=== PATIENT | female | born 1935 | race Caucasian/White ===

== ENCOUNTER → 2019-03-02 | Outpatient (CLI) | payer OTHER ==
[2019-03-02 12:17] LABS: Creatinine, Urine Random 42.9 mg/dL (27.00-270.00)
[2019-03-02 12:18] LABS: Microalb/Creat Ratio UR, Rand 173.193 mg/g (0.000-30.000); Microalbumin, Random Urine 74.3 mg/L (0.000-20.000)
[2019-03-05 10:06] LABS: DOPAMINE, URINE 97 ug/L (Undefined)
== END | disposition home or self-care (01) ==
LOC: LAB SHORT 09:40 → LAB 09:40
PROVIDERS: Physician Assistant
DX: I10 Essential (primary) hypertension (principal)
CPT/HCPCS: 81050; 82043; 82570

== ENCOUNTER 2021-03-14 09:18 | Emergency (ER) | payer OTHER ==
[~2021-03-14] VITALS: Ht 157.5 cm; Wt 50.8 kg
[2021-03-14] MEDS ORDERED: IRBESARTAN300 M3 PO (09:40)
[2021-03-14 10:31] LABS: BASOPHILS PERCENT AUTO 0 % (0-2); EOSINOPHILS ABSOLUTE AUTO 0.01 K/mm3 (0.00-0.68); EOSINOPHILS PERCENT AUTO 0 % (0-6); Hematocrit 40.8 % (33.0-51.0); Hemoglobin 13.6 g/dL (11.5-16.0); IMMATURE GRAN PERCENT AUTO 4 % (0-1); LYMPHOCYTES ABSOLUTE AUTO 1.21 K/mm3 (0.84-5.20); LYMPHOCYTES PERCENT AUTO 27 % (21-46); MONOCYTES ABSOLUTE AUTO 0.67 K/mm3 (0.16-1.47); MONOCYTES PERCENT AUTO 15 % (4-13); Mean Corpuscular HGB 31.8 pg (26.0-34.0); Mean Corpuscular HGB Conc 33.3 g/dL (31.5-36.5); Mean Corpuscular Volume 95 fL (80-100); Mean Platelet Volume 10.9 fL (9.1-12.4); NEUTROPHILS ABSOLUTE AUTO 2.44 K/mm3 (1.96-9.15); NEUTROPHILS PERCENT AUTO 54 % (41-73); Platelet Count 194 K/mm3 (150-400); RDW Coefficient Variation 13.9 % (11.7-14.2); Red Blood Cell Count 4.28 M/mm3 (3.80-5.20); White Blood Cell Count 4.53 K/mm3 (4.00-11.30)
[2021-03-14 10:48] LABS: Albumin, Blood 4.4 g/dL (3.4-5.0); Albumin/Globulin Ratio 1.1 (0.8-1.8); Bilirubin, Total 0.5 mg/dL (0.1-1.0); Bun/Creatinine Ratio 11.2 (12.0-20.0); Calcium, Blood 9.2 mg/dL (8.5-10.1); Creatinine, Blood 0.99 mg/dL (0.40-1.00); Potassium, Blood 4.2 mmol/L (3.5-5.5); Total Protein, Blood 8.4 g/dL (6.4-8.2)
[2021-03-14] MEDS ORDERED: Bactrim Ds Tab1 EACH PO (11:07)
[2021-03-14] MEDS ORDERED: CEPH500 PO (11:07)
== END 2021-03-14 11:40 | disposition home or self-care (01) ==
LOC: ER 09:18
PROVIDERS: Physician Assistant
DX: L03.115 Cellulitis of right lower limb (principal); L97.519 Non-pressure chronic ulcer of other part of right foot with unspecified severity; I10 Essential (primary) hypertension; Z79.899 Other long term (current) drug therapy
CPT/HCPCS: 36415; 73620; 80053; 85025; 99284-25

== ENCOUNTER 2021-03-16 15:47 | Inpatient (IN) | payer OTHER ==
[~2021-03-16] VITALS: Ht 154.9 cm; Wt 50.8 kg
[~2021-03-16 15:47] MED LIST: Bactrim Ds Tab1 EACH PO; CEPH500 PO; IRBESARTAN300 M3 PO
[2021-03-16] MEDS ORDERED: ATEN50 PO (17:18)
[2021-03-16] MEDS ORDERED: AMLO5 PO (17:19)
[2021-03-16 17:55] LABS: BASOPHILS PERCENT AUTO 0 % (0-2); EOSINOPHILS ABSOLUTE AUTO 0.03 K/mm3 (0.00-0.68); EOSINOPHILS PERCENT AUTO 0 % (0-6); Hematocrit 34.4 % (33.0-51.0); Hemoglobin 11.8 g/dL (11.5-16.0); IMMATURE GRAN ABSOLUTE AUTO 0.45 K/mm3 (0.00-0.10); IMMATURE GRAN PERCENT AUTO 5 % (0-1); LYMPHOCYTES ABSOLUTE AUTO 0.23 K/mm3 (0.84-5.20); LYMPHOCYTES PERCENT AUTO 3 % (21-46); MONOCYTES ABSOLUTE AUTO 1.23 K/mm3 (0.16-1.47); MONOCYTES PERCENT AUTO 14 % (4-13); Mean Corpuscular HGB 31.7 pg (26.0-34.0); Mean Corpuscular HGB Conc 34.3 g/dL (31.5-36.5); Mean Corpuscular Volume 93 fL (80-100); Mean Platelet Volume 10.9 fL (9.1-12.4); NEUTROPHILS ABSOLUTE AUTO 6.96 K/mm3 (1.96-9.15); NEUTROPHILS PERCENT AUTO 78 % (41-73); Platelet Count 155 K/mm3 (150-400); Red Blood Cell Count 3.72 M/mm3 (3.80-5.20)
[2021-03-16 18:22] LABS: Albumin/Globulin Ratio 1.2 (0.8-1.8); Bilirubin, Total 0.4 mg/dL (0.1-1.0); Bun/Creatinine Ratio 13.9 (12.0-20.0); Calcium, Blood 9.1 mg/dL (8.5-10.1); Creatinine, Blood 1.08 mg/dL (0.40-1.00); Globulin, Blood 3.2 g/dL (2.2-4.0); Potassium, Blood 4.1 mmol/L (3.5-5.5); Total Protein, Blood 7.2 g/dL (6.4-8.2)
[2021-03-16 19:36] LABS: Creatine Kinase MB 10.3 ng/mL (0.0-3.6); Creatine Kinase MB Index 0.7 (0.0-4.0)
[2021-03-16 20:18] LABS: SARS-Cov-2 (COVID-19) PCR, MMC NEGATIVE (NEGATIVE)
--- NOTE | 2021-03-16 22:00 | NUR ---
PT ARRIVED TO ROOM FROM ER. PT ALERT, ORIENTED TO SELF, DOES FOLLOW BASIC DIRECTIONS. PT STATES SHE FELL, REPORTS "I FALL ALL OF THE TIME" BUT WAS UNABLE TO GIVE DETAILS OF FALL OR HOW LONG SHE WAS DOWN FOR. PT REP POSSIBLY HIT HEAD W/FALL, BUT DENIES LOC. PT HAS BRUISE ON RIGHT HIP, AND SMALL BRUISE ON LEFT HIP. RIGHT FOOT RED/SWOLLEN W/SCABS ON TOES AND SCABBED ULCER ON RIGHT HEEL. PT "WE'VE BEEN DEALING W/THAT FOR AGES" PT UNABLE TO GIVE MEDICAL HX, HAS DIFFICULTY FINDING APPROPRIATE WORDS. INITIAL ADMIT AND ADMIT ASSESSMENT UNABLE TO BE COMPLETED AT THIS TIME. PT ORIENTED TO ROOM/CALL LIGHT, BED ALARM ON FOR SAFETY.
[2021-03-17 04:57] LABS: BASOPHILS ABSOLUTE AUTO 0.01 K/mm3 (0.00-0.23); BASOPHILS PERCENT AUTO 0 % (0-2); EOSINOPHILS ABSOLUTE AUTO 0.02 K/mm3 (0.00-0.68); EOSINOPHILS PERCENT AUTO 0 % (0-6); Hematocrit 34.2 % (33.0-51.0); Hemoglobin 11.6 g/dL (11.5-16.0); IMMATURE GRAN ABSOLUTE AUTO 0.11 K/mm3 (0.00-0.10); IMMATURE GRAN PERCENT AUTO 2 % (0-1); LYMPHOCYTES ABSOLUTE AUTO 0.82 K/mm3 (0.84-5.20); LYMPHOCYTES PERCENT AUTO 12 % (21-46); MONOCYTES ABSOLUTE AUTO 1.31 K/mm3 (0.16-1.47); MONOCYTES PERCENT AUTO 19 % (4-13); Mean Corpuscular HGB 31.4 pg (26.0-34.0); Mean Corpuscular HGB Conc 33.9 g/dL (31.5-36.5); Mean Corpuscular Volume 92 fL (80-100); Mean Platelet Volume 11.1 fL (9.1-12.4); NEUTROPHILS ABSOLUTE AUTO 4.53 K/mm3 (1.96-9.15); NEUTROPHILS PERCENT AUTO 67 % (41-73); Platelet Count 159 K/mm3 (150-400); RDW Coefficient Variation 14.1 % (11.7-14.2); RDW Standard Deviation 48.1 fL (35.1-46.3)
[2021-03-17 05:10] LABS: International Normalized Ratio 1.15; Prothrombin Time Results 12.3 Sec (9.7-11.5)
[2021-03-17 05:34] LABS: Albumin, Blood 3.5 g/dL (3.4-5.0); Albumin/Globulin Ratio 1.2 (0.8-1.8); Bilirubin, Total 0.5 mg/dL (0.1-1.0); Calcium, Blood 8.6 mg/dL (8.5-10.1); Creatinine, Blood 1.06 mg/dL (0.40-1.00); Magnesium, Blood 2.1 mg/dL (1.6-2.4); Potassium, Blood 3.9 mmol/L (3.5-5.5); Total Protein, Blood 6.5 g/dL (6.4-8.2)
--- NOTE | 2021-03-17 08:28 | NUR ---
PT NEW ADMIT THIS SHIFT FOR LEFT HIP FX. PT ALERT, PLEASANTLY CONFUSED, UNABLE TO GIVE MEDICAL HISTORY. PT BP ELEVATED, PRN HYDRALAZINE GIVEN PER EMAR. PT DENIED CP/PRESSURE. PAIN MGD PER EMAR AND REPOSITIONING. PT INCONTINENT, ATTENDS CHANGED PRN. HEEL PROTECTORS IN PLACE, RIGHT FOOT WOUND PICS IN CHART. PT NPO POST MIDNIGHT, IVF CONT PER ORDERS. AWAITING ORTHO CONSULT FOR SURGERY PLANS. REPORT GIVEN TO TANO Gupta RN.
[2021-03-17 09:55] LABS: Albumin, Blood 3.7 g/dL (3.4-5.0); Anion Gap 11 mmol/L (6-16); Blood Urea Nitrogen 18 mg/dL (8-24); Bun/Creatinine Ratio 15.9 (12.0-20.0); CO2, Blood 19 mmol/L (21-32); Calcium, Blood 8.8 mg/dL (8.5-10.1); Chloride, Blood 103 mmol/L (98-108); Creatinine, Blood 1.13 mg/dL (0.40-1.00); Glomerular Filtration Rate 49 (60-); Glucose, Blood 74 mg/dL (70-99); Sodium, Blood 133 mmol/L (136-145)
--- NOTE | 2021-03-17 11:32 | NUR ---
STRAIGHT CATH UNSUCCESSFUL AT GETTING A CLEAN CATCH URINE SPECIMEN. PT TOLERATED STRAIGHT CATH. URINE SPECIMEN SENT TO LAB.
[2021-03-17 11:38] LABS: Source, Urine Catheter
[2021-03-17 11:44] LABS: Bilirubin, Urine Neg (Neg); Blood, Urine 1+ (Neg); Glucose Qualitative, Urine Neg (Neg); Ketones, Urine 3+ (Neg); Leukocyte Esterase, Urine Neg (Neg); Nitrite, Urine Neg (Neg); Protein, Urine 2+ (Neg); Specific Gravity, Urine 1.025 (1.003-1.022); Urobilinogen, Urine NORM (Normal)
[2021-03-17 11:54] LABS: Appearance, Urine Clear (Clear); Color, Urine Yellow (P-Yellow)
[2021-03-17 11:56] LABS: Bacteria Rare /hpf; Squamous Epithelial Cells Rare /hpf (Few); White Blood Cells, Urine 0-2 /hpf (0-5)
--- NOTE | 2021-03-17 13:19 | NUR ---
PT TO OR
--- NOTE | 2021-03-17 14:05 | NUR ---
STAT EKG PRE OP, GALINDO GARCIASES X3, PERIDEX SWISH GARGLE SPIT, CHLORHEXADINE WIPES L HIP TO KNEE THEN PT TO OR.
--- NOTE | 2021-03-17 16:42 | NUR ---
PT ARIVED FROM PACU RESTLESS AND CONFUSED. PULLING AT POLAR PACK AND LINENS. DENIES PAIN. MEDICATED PER ORDERS FOR NAUSEA. DAUGHTER AT BEDSIDE, VITAL SIGNS STABLE.
--- NOTE | 2021-03-17 17:53 | NUR ---
SHIFT SUMMARY POD0 HEMIHIP ARTHROPLASTY ANTERIOR. PRIOR TO SURGERY PT STRAIGHT CATH FOR UA SPECIMEN. UPON RETURN FROM PACU PT CONFUSED, RESTLESS AND APPEARS AGITATED. PT REPORTED NOT FEELING WELL POST OP, ZOFRAN ADMINISTERED PRN PER EMAR. PT STATING SHE WANTS TO LEAVE AND ATTEMPTS TO PULL OUT HER IV AND OTHER LINES. PT HAS ULCER ON RIGHT HEEL THAT IS COVERED W/MEPILEX. BOTH FEET COVERED W/FOAM HEEL PROTECTORS. ACQUACEL TO L HIP, C/D/I. POLAR PACK IN PLACE. PT DENIES PAIN. BED ALARM ON. CALL LIGHT IN REACH.
--- NOTE | 2021-03-17 18:22 | NUR ---
PT PULLED OFF AQUACEL AND PULLED OUT IV. NEW AQUACEL PLACED.
--- NOTE | 2021-03-17 19:09 | NUR ---
PLACED MSG OUT TO DR LIU REGARDING POST OP ABX.
[2021-03-18 04:25] LABS: Hemoglobin 10.5 g/dL (11.5-16.0); Mean Corpuscular HGB 31.7 pg (26.0-34.0); Mean Corpuscular HGB Conc 33.9 g/dL (31.5-36.5); Mean Corpuscular Volume 94 fL (80-100); RDW Coefficient Variation 14.4 % (11.7-14.2); RDW Standard Deviation 49.8 fL (35.1-46.3); Red Blood Cell Count 3.31 M/mm3 (3.80-5.20); White Blood Cell Count 8.43 K/mm3 (4.00-11.30)
[2021-03-18 04:29] LABS: Mean Platelet Volume 11.6 fL (9.1-12.4); Platelet Count 119 K/mm3 (150-400)
--- NOTE | 2021-03-18 04:37 | NUR ---
DRESSING PT CONTINUES TO REMOVE DRESSINGS (3RD TIME THIS SHIFT), PT DID NOT WANT NEW DRESSING PLACED, EDUCATED PT ON CONCERN FOR BLEEDING AND INFECTION IF INCISION GETS OPENED, ALSO EDUCATED ON THE POSSIBILITY OF LONGER RECOVERY IF IT BECOMES INFECTED. WILL CONTINUE TO MONITOR PT
--- NOTE | 2021-03-18 06:23 | NUR ---
SHIFT SUMMARY POD1 L IQRA HIP ANTERIOR, ALERT W/ INCREASING AGGRESSION AND CONFUSION, ATTEMPTS TO DEESCALATE PT WERE UNSUCCESSFUL, PT WAS UNRECEPTIVE TO NURSING CARE T/O MOST OF THE SHIFT, PT PLACED IN SOFT RESTRAINTS FOR HER SAFETY DUE TO AGGITATION/AGGRESSION/PULLING OUT LINES/PULLING OFF NEW INCISION DRESSINGS RISKING INFECTION AND DEHISCENCE, PT CONTINUED TO BE AGGRESSIVE ATTEMPTING TO SCRATCH AT STAFF WHEN ROUNDING AND DOING CIRCULATION CHECKS AND ROM, WHEN RESTRAINTS WERE LOOSENED TO ALLOW PT TO HAVE INCREASED ROM AND FREEDOM SHE RESUMED RIPPING OFF DRESSING CAUSING INCISION TO BLEED SO RESTRAINTS WERE ADJUSTED AGAIN. PT ROUNDED ON HOURLY T/O SHIFT W/ RESTRAINT CHECKS EVERY OTHER HOUR PER PROTOCOL, PT EDUCATED ON IMPORTANCE OF SAFETY FOR BOTH PT AND STAFF AND COOPERATION W/ CARE WAS ENCOURAGED THOUGH PT WAS NOT RECEPTIVE. PT REPEATEDLY TALKED ABOUT HOW NURSING STAFF WERE THE ONES WHO PUT HER HERE, ATTEMPTS TO CONSOLE PT NOT EFFECTIVE, PT STATED SEVERAL TIMES SHE WAS GOING TO AND NURSING STAFF SHOULD JUST FINISH HER OFFF, AGAIN ATTEMPTS TO REASSURE HER THAT WE WERE PRIMARILY CONCERNED W/ KEEPING HER SAFE FOR A SPEEDY RECOVERY, THERAPEUTIC COMMUNICATION WAS EMPLOYED W/ ALL INTERACTIONS. CALL LIGHT IN REACH, WILL CONTINUE TO MONITOR AND REPORT TO ONCOMING DAY RN.
--- NOTE | 2021-03-18 10:15 | NUR ---
TRANSFERRED TO [facility], REPORT CALLED TO BELKYS Lambert RN. PT DENIES PAIN, TYE PO BREAKFAST WITH MEAL ASSIST, VOIDED IN BEDPAN, ATTENDS ON FOR LEAKAGE, IV IN RONNA. RESTRAINTS IN PLACE, PT CONFUSED, BUT CALM AND COOPERATIVE THIS AM, STILL MAKES MOVES TO PULL AT IV LINE. TAKEN BY BED WITH ALL PERSONAL POSSESSIONS TO ROOM 344.
--- NOTE | 2021-03-18 14:20 | NUR ---
CALLED DR QUIÑONES TO ENSURE HE GOT THE REFERRAL, ER NURSE WILL MAKE SURE HE HAS IT
--- NOTE | 2021-03-18 17:35 | NUR ---
SHIFT SUMMARY JANKI ARRIVED FROM SURGICAL FLOOR AROUND 10AM. CALM AND COOPERATIVE, RESTRAINTS DC'D AT 1140. FREQUENT ROUNDING ON THIS PT, BUT NO ATTEMPTS TO GET OOB. DRESSING ON RLE HEEL CHANGED, DOPPLER ORDERED BY DR RAO. SBA WITH WALKER AND GAIT BELT TO BR. PT SAW PT. MOSTLY ORIENTED BUT FORGETFUL. BRADYCARDIA CONTINUES THIS SHIFT AT 45-50HR. SON VISITED. CALL LIGHT IN REACH, FREQUENT CHECKS, WCTM
--- NOTE | 2021-03-19 05:01 | NUR ---
LAMBSKIN TRIMMER SUMMARY PT AAOX2-3 AT START OF SHIFT BUT DOES SHOW SOME SUNDOWNERS PT BECOMES MORE CONFUSED LATER INTO THE NIGHT. BED ALARM ON FOR SAFETY PT ATTEMPTS TO GET OOB WITHOUT ASSISTANCE AT TIMES. PT STANDBY ASSIST TO BSC, FAIRLY STEADY ON FEET. DENIES PAIN OF L HIP, POD2 TODAY. DRESSING C/D/I. PT EASY TO REDIRECT AND HAS BEEN PLEASANT. VSS, WILL CONTINUE TO MONITOR.
[2021-03-19 05:37] LABS: BASOPHILS PERCENT AUTO 0 % (0-2); EOSINOPHILS ABSOLUTE AUTO 0.01 K/mm3 (0.00-0.68); EOSINOPHILS PERCENT AUTO 0 % (0-6); Hemoglobin 10.4 g/dL (11.5-16.0); IMMATURE GRAN ABSOLUTE AUTO 0.48 K/mm3 (0.00-0.10); IMMATURE GRAN PERCENT AUTO 6 % (0-1); LYMPHOCYTES ABSOLUTE AUTO 0.43 K/mm3 (0.84-5.20); LYMPHOCYTES PERCENT AUTO 5 % (21-46); MONOCYTES PERCENT AUTO 11 % (4-13); Mean Corpuscular HGB 31.2 pg (26.0-34.0); Mean Corpuscular HGB Conc 33.5 g/dL (31.5-36.5); Mean Corpuscular Volume 93 fL (80-100); Mean Platelet Volume 11.8 fL (9.1-12.4); NEUTROPHILS ABSOLUTE AUTO 6.14 K/mm3 (1.96-9.15); NEUTROPHILS PERCENT AUTO 77 % (41-73); Platelet Count 121 K/mm3 (150-400); RDW Coefficient Variation 14.4 % (11.7-14.2); RDW Standard Deviation 49.4 fL (35.1-46.3); Red Blood Cell Count 3.33 M/mm3 (3.80-5.20); White Blood Cell Count 7.96 K/mm3 (4.00-11.30)
[2021-03-19 05:55] LABS: Anion Gap 11 mmol/L (6-16); Blood Urea Nitrogen 31 mg/dL (8-24); Bun/Creatinine Ratio 34.1 (12.0-20.0); CO2, Blood 18 mmol/L (21-32); Calcium, Blood 7.9 mg/dL (8.5-10.1); Chloride, Blood 101 mmol/L (98-108); Creatinine, Blood 0.91 mg/dL (0.40-1.00); Glomerular Filtration Rate >60 (60-); Glucose, Blood 93 mg/dL (70-99); Potassium, Blood 3.9 mmol/L (3.5-5.5); Sodium, Blood 130 mmol/L (136-145)
--- NOTE | 2021-03-19 17:23 | NUR ---
SHIFT SUMMARY PT WOKE UP THIS MORNING AND WAS EXTREMELY DISORIENTED AND DIFFICULT TO REORIENT. INSISTED ON GETTING UP AND GETTING DRESSED AND PUTTING ON HER LIPSTICK DESPITE NO ITEMS AVAILABLE TO USE. UNABLE TO UNDERSTANDING SHE IS IN THE HOSPITAL. ASSISTED HER UP TO RECLINER CHAIR AND BROUGHT TO HALLWAY FOR CLOSER OBSERVATION FOR SAFETY. BECAME CALMER WHEN ABLE TO NOTICE AREA ISNT HER HOME. FELL ASLEEP LATE THIS MORNING IN RECLINER CHAIR AND DIDN'T ROUSE FOR LUNCH. SON IN TO VISIT THIS AFTERNOON AND HAS BEEN AWAKE DRINKING WATER MOST OF AFTERNOON. CAN STILL BE DIFFICULT TO REDIRECT.
--- NOTE | 2021-03-20 05:09 | NUR ---
SHIFT SUMMARY PT'S BLOOD PRESSURE ELEVATED THIS EVENING, MEDICATED W/ PRN HYDRALAZINE. ONLY MINIMALLY EFFECTIVE. PT FELL ASLEEP IN RECLINER OUT IN THE [place]. ASSISTED INTO BED AND PT SLEPT THROUGH MOST OF THE NIGHT. ONLY GETTING UP A COUPLE TIMES TO VOID. DRESSING TO R HEEL AND LEFT HIP SURGICAL SITE CHANGED. OTHERWISE PT HAD AN UNEVENTFUL NIGHT. WILL CONTINUE TO MONITOR.
--- NOTE | 2021-03-20 11:45 | NUR ---
Pt resting in bed upon arrival. Pt is A&OX1 and is reporting pain in her legs, feet, toes, and buttocks areas. Pt unable to provide pain rating and states severe. FLACC score of 3/10. Pt engages in non sensical and almost paranoid conversation. Pt states "why are you doing this to me", "you might as well kill me now". Continued therapeutic listening with Pt appearing to become agitated. Ended visit to allow Pt to rest. Spoke with Bedside RN Christopher, discussed case, and reported Pt's pain. Spoke with Caremanager Norma and discussed case. Pt's son is flying back home today and Pt's daughter Odette is flying in today. Odette plans to stay here in town over the next couple of weeks and will be the main crap game box person. Plan: Supportive and therapeutic visits with family with gentle eduction on advanced care planning. Palliative Care will remain available.
--- NOTE | 2021-03-20 14:50 | NUR ---
PT H/R 53. DR RAHAT JAIN,
--- NOTE | 2021-03-20 17:03 | NUR ---
PT PLEASANT A/O X3 TODAY. STATES IS TIRED AND DOES NOT FEEL LIKE GETTING BETTER, LUNGS CLEAR, RESP EASY, UNLABORED. H/R 52-[address] GIANG OXY FOR PAIN IN HIP/LEG. PT IN RECLINER CHAIR. HAS NOT BEEN EATING AT ALL LAST TWO DAYS. DID ENCOURAGE WITH LEMONAIDE, REFUSED, MAGIC CUP. AND AN ENSURE SHAKE, PT SIPPING A LITTLE ON THIS. PT PRESENTS FAILURE TO THRIVE. SPIRITUAL CARE ENCOURAGING HER ALSO. FAMILY ON BOARD AND TO COME TO ASSIST HOPEFUL TOMORROW. BED IN LOW POSITION, CALL LITE IN REACH, CALLS APPROP
--- NOTE | 2021-03-20 17:10 | NUR ---
Spiritual care note: Mrs. Hickman appeared quite frail and very tired/sleepy. she was often repetative and seemed muddled in her thinking. she told me she knows she cannot live alone anymore, but does not know how to figure out what happens next. She feel well loved-and supported by her five adult children. They all live out of state, but are apparently aware of their mom's decline and taking turns coming to help with next steps. Dtr, Odette, to arrive today. I made her an Ensure milkshake, and she took a few sips, but nothing substansive. She says her biggest concern "right now" is "I need to poop, but can't." She states she feels like she can't eat or drink anything because she's "full of poop." She is non-oriental orthodox, but responded well to touch, comfort, and assurance of care. I will remain available to pt and family.
--- NOTE | 2021-03-21 04:47 | NUR ---
SHIFT SUMMARY ALERT, ABLE TO MAKE NEEDS KNOWN. FORGETFUL AT TIMES. COOPERATIVE WITH CARE. UTILIZING CALL SYSTEM. C/O PAIN/DISCOMFORT TO R TOE; MEDICATED PER EMAR. ELEVATED BP OVERNIGHT; MEDICATED PER EMAR. APPEARED TO REST OVERNIGHT. UP TO BATHROOM WITH 1P ASSIST. ENCOURAGED TO DRINK WATER. BLE ELEVATED ON PILLOWS. BED REMAINS IN LOWEST POSITION; ALARM ON. CALL LIGHT AND BELONGINGS WITHIN REACH. CONTINUE WITH CURRENT PLAN OF CARE. REPORT TO ONCOMING RN.
--- NOTE | 2021-03-21 19:38 | NUR ---
SHIFT SUMMARY: NO ACUTE EVENTS TO REPORT THIS SHIFT. PT A&O; FORGETFUL; CALM AND COOPERATIVE WITH CARE. MEDICATED FOR FOOT PAIN PER EMAR. BM THIS SHIFT; AWAITING DISCHARGE . PT & OT FOLLOWING. REPORT GIVEN TO ONCOMING RN.
--- NOTE | 2021-03-22 04:34 | NUR ---
SHIFT SUMMARY A/O, ABLE TO MAKE NEEDS KNOWN. FORGETFUL AT TIMES. COOPERATIVE WITH CARE. CALLS AND ANSWERS QUESTIONS APPROPRIATELY. C/O PAIN/DISCOMFORT TO R GREAT TOE; MEDICATED PER EMAR. APPEARED TO REST MUCH OF THE NIGHT. REQUIRES 1P ASSIST TO BATHROOM/BSC. REMAINS HYPERTENSIVE THIS AM; WILL MEDICATE PER EMAR. NO OTHER ACUTE CHANGES NOTED OVERNIGHT. BED REMAINS IN LOWEST POSITION; ALARM ON. CALL LIGHT AND BELONGINGS WITHIN REACH. CONTINUE WITH CURRENT PLAN OF CARE. REPORT TO ONCOMING RN.
[2021-03-22 10:17] LABS: Anion Gap 7 mmol/L (6-16); Blood Urea Nitrogen 21 mg/dL (8-24); Bun/Creatinine Ratio 31.6 (12.0-20.0); CO2, Blood 25 mmol/L (21-32); Calcium, Blood 8.5 mg/dL (8.5-10.1); Chloride, Blood 97 mmol/L (98-108); Creatinine, Blood 0.67 mg/dL (0.40-1.00); Glomerular Filtration Rate >60 (60-); Glucose, Blood 108 mg/dL (70-99); Potassium, Blood 3.3 mmol/L (3.5-5.5); Sodium, Blood 129 mmol/L (136-145)
[2021-03-22 14:00] LABS: SARS-Cov-2 (COVID-19) PCR, MMC NEGATIVE (NEGATIVE)
[2021-03-22] MEDS ORDERED: ACET325 PO (14:38)
[2021-03-22] MEDS ORDERED: ASPI81CH PO (14:39)
[2021-03-22] MEDS ORDERED: AMLO10 PO (14:39)
[2021-03-22] MEDS ORDERED: DOCU100 PO (14:40)
[2021-03-22] MEDS ORDERED: ATEN50 PO (14:40)
[2021-03-22] MEDS ORDERED: Isosorbide Mono30 MG PO (14:40)
[2021-03-22] MEDS ORDERED: BISA10S PR (14:40)
[2021-03-22] MEDS ORDERED: DULCOLAX400 MG/5 M PO (14:42)
[2021-03-22] MEDS ORDERED: NICO21TP TOP (14:42)
[2021-03-22] MEDS ORDERED: MIRT15ST PO (14:42)
[2021-03-22] MEDS ORDERED: SENN187 PO (14:46)
[2021-03-22] MEDS ORDERED: OXYC5 PO (14:46)
--- NOTE | 2021-03-22 18:37 | NUR ---
PATIENT DISCHARGE: PATIENT DISCHARGED / XFR TO FACILITY ([facility]) THIS SHIFT. MEDICATION RECONCILIATION COMPLETED; MED LSIT & ORDERS PROVIDED IN XFR PACKET. PATIENT DEPARTED MEDICAL FLOOR VIA AMBULANCE c WHEELCHAIR AT 1607. REPORT CALLED TO SLOAN ANAND [facility].
[2021-03-22] MEDS ORDERED: ONDA4ODT MM (22:18)
== END 2021-03-22 16:06 | DRG 522 ==
LOC: ER 15:47 → SURS 18:34 → MEDS 18:34 → SURS 21:16 → MEDS 03-18 09:56 → ENPENDDIS 03-22 13:08 → MEDS 03-22 16:06
PROVIDERS: Internal Medicine; Nurse Practitioner Acute Care; Orthopaedic Surgery; Physician Assistant; ADMIT Hospitalist
PROC: 0SRS01A Replacement of Left Hip Joint, Femoral Surface with Metal Synthetic Substitute, Uncemented, Open Approach (ICD-10-PCS; principal; 2021-03-17 13:00)
DX: S72.032A Displaced midcervical fracture of left femur, initial encounter for closed fracture (principal); E87.1 Hypo-osmolality and hyponatremia; F03.91 Unspecified dementia, unspecified severity, with behavioral disturbance; F05 Delirium due to known physiological condition; M62.82 Rhabdomyolysis; F17.210 Nicotine dependence, cigarettes, uncomplicated; Z20.822 Contact with and (suspected) exposure to COVID-19; W01.0XXA Fall on same level from slipping, tripping and stumbling without subsequent striking against object, initial encounter; L97.519 Non-pressure chronic ulcer of other part of right foot with unspecified severity; R45.1 Restlessness and agitation; I73.9 Peripheral vascular disease, unspecified; K21.9 Gastro-esophageal reflux disease without esophagitis; I12.9 Hypertensive chronic kidney disease with stage 1 through stage 4 chronic kidney disease, or unspecified chronic kidney disease; N18.30 Chronic kidney disease, stage 3 unspecified; Z79.899 Other long term (current) drug therapy
CPT/HCPCS: 36415; 70450; 71045; 72170; 73502; 73560-LT; 80048; 80053; 80069; 81001; 82550; 82553; 83735; 85025; 85027; 85610; 93005; 93010; 93926; 96365; 97110; 97116; 97129; 97130; 97162; 97166; 97530; 97535; 99285-25; A9270; C1776; J0171; J0360; J0690; J0696; J0735; J1100; J1630; J1885; J2370; J2405; J2704; J2795; J3010; J7030; J7120; U0004

== ENCOUNTER 2021-03-22 20:25 | Emergency (ER) | payer OTHER ==
[~2021-03-22] VITALS: Ht 157.5 cm; Wt 49.9 kg
[~2021-03-22 20:25] MED LIST changes: +ACET325 PO; +AMLO10 PO; +AMLO5 PO; +ASPI81CH PO; +ATEN50 PO; +BISA10S PR; +DOCU100 PO; +DULCOLAX400 MG/5 M PO; +Isosorbide Mono30 MG PO; +MIRT15ST PO; +NICO21TP TOP; +OXYC5 PO; +SENN187 PO
[2021-03-22 20:53] LABS: BASOPHILS ABSOLUTE AUTO 0.01 K/mm3 (0.00-0.23); BASOPHILS PERCENT AUTO 0 % (0-2); EOSINOPHILS PERCENT AUTO 0 % (0-6); Hematocrit 24.5 % (33.0-51.0); Hemoglobin 8.4 g/dL (11.5-16.0); IMMATURE GRAN ABSOLUTE AUTO 0.36 K/mm3 (0.00-0.10); IMMATURE GRAN PERCENT AUTO 5 % (0-1); LYMPHOCYTES PERCENT AUTO 11 % (21-46); MONOCYTES PERCENT AUTO 9 % (4-13); Mean Corpuscular HGB 32.1 pg (26.0-34.0); Mean Corpuscular HGB Conc 34.3 g/dL (31.5-36.5); Mean Corpuscular Volume 94 fL (80-100); NEUTROPHILS ABSOLUTE AUTO 5.66 K/mm3 (1.96-9.15); NEUTROPHILS PERCENT AUTO 75 % (41-73); Platelet Count 161 K/mm3 (150-400); RDW Standard Deviation 47.8 fL (35.1-46.3); Red Blood Cell Count 2.62 M/mm3 (3.80-5.20); White Blood Cell Count 7.53 K/mm3 (4.00-11.30)
[2021-03-22 21:09] LABS: International Normalized Ratio 1.17; Prothrombin Time Results 12.5 Sec (9.7-11.5)
[2021-03-22 21:11] LABS: Albumin, Blood 2.8 g/dL (3.4-5.0); Albumin/Globulin Ratio 0.9 (0.8-1.8); Bilirubin, Total 0.8 mg/dL (0.1-1.0); Bun/Creatinine Ratio 39.5 (12.0-20.0); Creatinine, Blood 0.96 mg/dL (0.40-1.00); Globulin, Blood 3.1 g/dL (2.2-4.0); Potassium, Blood 3.9 mmol/L (3.5-5.5); Total Protein, Blood 5.9 g/dL (6.4-8.2)
[2021-03-22] MEDS ORDERED: ONDA4ODT MM (22:18)
== END 2021-03-22 23:57 | disposition home or self-care (01) ==
LOC: ER 20:25
PROVIDERS: Emergency Medicine
DX: D64.9 Anemia, unspecified (principal); R11.2 Nausea with vomiting, unspecified; I12.9 Hypertensive chronic kidney disease with stage 1 through stage 4 chronic kidney disease, or unspecified chronic kidney disease; N18.9 Chronic kidney disease, unspecified; F17.210 Nicotine dependence, cigarettes, uncomplicated; Z79.899 Other long term (current) drug therapy; Z79.82 Long term (current) use of aspirin
CPT/HCPCS: 36415; 80053; 85025; 85610; 85730; 86850; 86900; 86901; 93005; 93010; 99285-25; J2405; J7030

== ENCOUNTER 2021-04-02 12:03 | Emergency (ER) | payer OTHER ==
[~2021-04-02] VITALS: Ht 157.5 cm; Wt 54.4 kg
[~2021-04-02 12:03] MED LIST changes: -AMLOATOR; -ASPIR 8181 MG PO; -ATROPINE SULFATE2 M5 SL; -AVAPRO150 MG PO; -MIRT15 PO; -MORP20L PO; -Nicoderm Cq1 EAC1 TOP; -TRANSDERM-SCOP1 EAC5 TD
[2021-04-02] MEDS ORDERED: AMLOATOR (12:20)
[2021-04-02] MEDS ORDERED: ASPIR 8181 MG PO (12:21)
[2021-04-02] MEDS ORDERED: ATEN50 PO (12:21)
[2021-04-02] MEDS ORDERED: AVAPRO150 MG PO (12:22)
[2021-04-02] MEDS ORDERED: OXYC5 PO (12:26)
[2021-04-02] MEDS ORDERED: Isosorbide Mono30 MG PO (12:26)
[2021-04-02] MEDS ORDERED: MIRT15 PO (12:26)
[2021-04-03] MEDS ORDERED: AMLO10 PO (03:43)
[2021-04-03] MEDS ORDERED: Nicoderm Cq1 EAC1 TOP (04:15)
[2021-04-03] MEDS ORDERED: BISA10S PR (04:16)
[2021-04-03] MEDS ORDERED: ACET325 PO (04:16)
[2021-04-03] MEDS ORDERED: SENN187 PO (04:16)
== END 2021-04-02 13:22 | disposition home or self-care (01) ==
LOC: ER 12:03
DX: R45.851 Suicidal ideations (principal); R45.1 Restlessness and agitation; I10 Essential (primary) hypertension; F17.210 Nicotine dependence, cigarettes, uncomplicated; Z79.82 Long term (current) use of aspirin; Z79.899 Other long term (current) drug therapy
CPT/HCPCS: 99285

== ENCOUNTER 2021-04-02 22:01 | Observation (INO) | payer OTHER ==
[~2021-04-02] VITALS: Ht 157.5 cm; Wt 49.9 kg
[~2021-04-02 22:01] MED LIST changes: +AMLOATOR; +ASPIR 8181 MG PO; +AVAPRO150 MG PO; +MIRT15 PO
[2021-04-02 23:39] LABS: BASOPHILS ABSOLUTE AUTO 0.01 K/mm3 (0.00-0.23); BASOPHILS PERCENT AUTO 0 % (0-2); EOSINOPHILS ABSOLUTE AUTO 0.04 K/mm3 (0.00-0.68); EOSINOPHILS PERCENT AUTO 0 % (0-6); Hematocrit 21.5 % (33.0-51.0); Hemoglobin 6.6 g/dL (11.5-16.0); IMMATURE GRAN ABSOLUTE AUTO 0.17 K/mm3 (0.00-0.10); IMMATURE GRAN PERCENT AUTO 2 % (0-1); LYMPHOCYTES ABSOLUTE AUTO 1.31 K/mm3 (0.84-5.20); LYMPHOCYTES PERCENT AUTO 13 % (21-46); MONOCYTES ABSOLUTE AUTO 1.67 K/mm3 (0.16-1.47); MONOCYTES PERCENT AUTO 17 % (4-13); Mean Corpuscular HGB Conc 30.7 g/dL (31.5-36.5); Mean Corpuscular Volume 104 fL (80-100); Mean Platelet Volume 10.2 fL (9.1-12.4); NEUTROPHILS ABSOLUTE AUTO 6.67 K/mm3 (1.96-9.15); NEUTROPHILS PERCENT AUTO 68 % (41-73); Platelet Count 309 K/mm3 (150-400); RDW Coefficient Variation 19.2 % (11.7-14.2); RDW Standard Deviation 72.4 fL (35.1-46.3); Red Blood Cell Count 2.06 M/mm3 (3.80-5.20); White Blood Cell Count 9.87 K/mm3 (4.00-11.30)
[2021-04-02 23:55] LABS: International Normalized Ratio 1.01; Prothrombin Time Results 10.9 Sec (9.7-11.5)
[2021-04-02 23:56] LABS: Alanine Aminotransfer (ALT/SGP 17 U/L (12-78); Albumin, Blood 3.1 g/dL (3.4-5.0); Albumin/Globulin Ratio 0.9 (0.8-1.8); Alk Phos 100 U/L (50-136); Anion Gap 5 mmol/L (6-16); Aspartate Aminotrans (AST/SGOT 16 U/L (12-37); Bilirubin, Total 0.7 mg/dL (0.1-1.0); Blood Urea Nitrogen 15 mg/dL (8-24); Bun/Creatinine Ratio 20.6 (12.0-20.0); CO2, Blood 26 mmol/L (21-32); Calcium, Blood 8.1 mg/dL (8.5-10.1); Chloride, Blood 105 mmol/L (98-108); Creatinine, Blood 0.73 mg/dL (0.40-1.00); Globulin, Blood 3.3 g/dL (2.2-4.0); Glomerular Filtration Rate >60 (60-); Glucose, Blood 85 mg/dL (70-99); Potassium, Blood 3.4 mmol/L (3.5-5.5); Sodium, Blood 136 mmol/L (136-145); Total Protein, Blood 6.4 g/dL (6.4-8.2)
--- NOTE | 2021-04-03 01:44 | NUR ---
transfer report from Boo SOLOMON RN on 85 year old Female with anemia & recieving 1 unit of PRBC. Sent via EMS from [facility]. HX of dementia baseline. Recent fall with lt femer fx repair with post op dressing reported in place. Await admission
[2021-04-03] MEDS ORDERED: AMLO10 PO (03:43)
[2021-04-03 03:45] LABS: IMMATURE RETIC FRACTION 26.8 % (2.3-16.0); RETIC HGB EQUIVALENT 32.6 pg (28.20-36.60); RETICULOCYTE ABSOLUTE 0.1542 M/mm3 (0.0200-0.1100); RETICULOCYTE COUNT PERCENT 7.52 % (0.50-2.50)
[2021-04-03] MEDS ORDERED: Nicoderm Cq1 EAC1 TOP (04:15)
[2021-04-03] MEDS ORDERED: SENN187 PO (04:16)
[2021-04-03] MEDS ORDERED: ACET325 PO (04:16)
[2021-04-03] MEDS ORDERED: BISA10S PR (04:16)
[2021-04-03 04:40] LABS: Percent Saturation 13.4 % (15.0-50.0)
--- NOTE | 2021-04-03 05:20 | NUR ---
PT has dementia hx of recent fall with lt femur fx she is confused & attempts multiple times to get OOB unassisted. Fall precautions, May need remote camera monitoring due to dementia, post lt femur fx repair & poor safety awareness. Haldol 3 mg iv had mild helpful effect but continues to attempt to throw legs over bedside. She co acute pain rt foot & has deep decub present on admission. Fentanyl 25 mcg given with helpful effect. Photo on chart with post surgical incision lt hip.
[2021-04-03 08:36] LABS: BASOPHILS ABSOLUTE AUTO 0.01 K/mm3 (0.00-0.23); BASOPHILS PERCENT AUTO 0 % (0-2); EOSINOPHILS ABSOLUTE AUTO 0.03 K/mm3 (0.00-0.68); EOSINOPHILS PERCENT AUTO 0 % (0-6); Hematocrit 30.6 % (33.0-51.0); Hemoglobin 9.7 g/dL (11.5-16.0); IMMATURE GRAN ABSOLUTE AUTO 0.27 K/mm3 (0.00-0.10); IMMATURE GRAN PERCENT AUTO 3 % (0-1); LYMPHOCYTES ABSOLUTE AUTO 0.73 K/mm3 (0.84-5.20); LYMPHOCYTES PERCENT AUTO 8 % (21-46); MONOCYTES ABSOLUTE AUTO 1.52 K/mm3 (0.16-1.47); MONOCYTES PERCENT AUTO 17 % (4-13); Mean Corpuscular HGB 28.9 pg (26.0-34.0); Mean Corpuscular HGB Conc 31.7 g/dL (31.5-36.5); Mean Platelet Volume 10.3 fL (9.1-12.4); NEUTROPHILS ABSOLUTE AUTO 6.67 K/mm3 (1.96-9.15); NEUTROPHILS PERCENT AUTO 72 % (41-73); Platelet Count 294 K/mm3 (150-400); RDW Coefficient Variation 27.6 % (11.7-14.2); RDW Standard Deviation 87.7 fL (35.1-46.3); Red Blood Cell Count 3.36 M/mm3 (3.80-5.20); White Blood Cell Count 9.23 K/mm3 (4.00-11.30)
[2021-04-03 08:37] LABS: Mean Corpuscular Volume 91 fL (80-100)
[2021-04-03 08:54] LABS: Alanine Aminotransfer (ALT/SGP 16 U/L (12-78); Albumin/Globulin Ratio 0.9 (0.8-1.8); Alk Phos 102 U/L (50-136); Anion Gap 7 mmol/L (6-16); Aspartate Aminotrans (AST/SGOT 18 U/L (12-37); Bilirubin, Total 1.5 mg/dL (0.1-1.0); Blood Urea Nitrogen 10 mg/dL (8-24); CO2, Blood 25 mmol/L (21-32); Calcium, Blood 7.9 mg/dL (8.5-10.1); Chloride, Blood 104 mmol/L (98-108); Creatinine, Blood 0.59 mg/dL (0.40-1.00); Globulin, Blood 3.3 g/dL (2.2-4.0); Glomerular Filtration Rate >60 (60-); Glucose, Blood 80 mg/dL (70-99); Potassium, Blood 3.2 mmol/L (3.5-5.5); Sodium, Blood 136 mmol/L (136-145); Total Protein, Blood 6.3 g/dL (6.4-8.2)
--- NOTE | 2021-04-03 12:37 | NUR ---
Pt resting in bed this AM with her eyes closed. Pt briefly opens her eyes and slightly mumbles to verbal stimuli then quickly closes her eyes. Pt appears comfortable with no S/S of distress at this time. Spoke with Bedside CHRISTOPHER Hercules and discussed case. Pt medicated with haloperidol and is in danielle vest. Pt's family may benefit from discussion regarding goals of care. Pt requires 1 to 2 person assist with transfers and ambulation. Pt experiences intermittent incontinence. Pt requires assistance with bathing and dressing. Pt's appetite is decreased but is able to feed herself. Pt had approximately 50% of her breakfast and refused her lunch. Called and spoke with Pt's daughter Odette. Provided update on plan of care and engaged in therapeutic conversation regarding advanced care planning and goals of care. Educated on disease process including trajectory of disease. Discussed the importance of routine conversations with MD and planning for the future. Discussed considering hospice as an option. Offered therapeutic listening and answered questions. Odette inquires about disposition and determining appropriate level of prison for Pt. Deferred these questions for Julio Cesar Martinez to answered. Discussed Pt's current code status and considering completing a POLST. Odette expresses interest and will complete one when she arrives to visit Pt. Charisma exprresses appreciation of call and reports no other concerns at this time. Spoke with Dr Vallecillo and discussed case. Spoke with Julio Cesar Martinez, discussed case and relayed family concerns. PPS 40% ADLs 5/6 FAST 7C Palliative Care will F/U when daughter arrives.
--- NOTE | 2021-04-03 16:00 | NUR ---
F/U visit this afternoon. Pt resting in bed with daughter Odette at bedside. Assisted JITENDRA Weldon with transfering Pt to BSC per Pt's wishes and back to bed. Pt is pleasantly confused. Engaged in therapeutic listening as Odette reports speaking with Dr Vallecillo regarding goals of care. Odette reports having conversation with her brother (Pt's son) and both are in agreement for hospice. Educated on hospice and comfort care philosophy with V/U made by Odette. Odette reports family is in agreement with placing Pt on comfort care during her hospital stay. Assisted Odette in completing POLST and educated on life sustaining measures. Pt's wishes are for DNR and Comfort Measures Only. Odette expresses appreciation of visit and is hoping for caremanagement to assist with placement. No other concerns reported at this time. Dr Vallecillo unavailable at this time. Called and spoke with Dr Call. Placed orders for comfort care, comfort care order set, and D/C IV fluids per V/O from Dr Call. Continued maintenance medications as Pt does not appear imminent. Placed hospice referral with family's choice of [facility] or [facility] pending on available the soonest. Palliative Care will remain available.
--- NOTE | 2021-04-03 17:56 | NUR ---
SUMMARY PT RESTING QUIETLY IN BED, CHANGED TO COMFORT CARE THIS AFTERNOON AFTER PALLIATIVE CARE VISITED WITH THE PT AND THE DAUGHTER, PT REMAINS CONFUSED AND IN VEST FOR SAFETY, PT DENIES ANY PAIN WHEN ASKED, WILL CONT TO MONITOR
--- NOTE | 2021-04-03 19:49 | NUR ---
COMFORT: PATIENT IS ANXIOUS AND REPORTING PAIN IN LEFT HIP. PATIENT IS REPOSITIONED AND ATIVAN IS GIVEN. SAFETY CHECK ARE DONE AND REWSTRAINTS RELEASED. AND RESECURED.
--- NOTE | 2021-04-04 00:56 | NUR ---
COMFORT: PATIENT HAD GOOD EFFECT FROM ATIVAN AND IS RESTING QUIETLY.
--- NOTE | 2021-04-04 00:57 | NUR ---
COMFORT: PATIENT IS RESTLESS IN BED, REFUSING PO INTAKE AND HS MEDS. SCORING 6 ON FLACC SCALE. ROXANOL IS GIVEN WITH T&P AND INC. CARE.
--- NOTE | 2021-04-04 01:00 | NUR ---
COMFORT: PATIENT SCORES A 6 ON FLACC SCALE. ROXANOL 5MG IS GIVEN.
--- NOTE | 2021-04-04 04:09 | NUR ---
lATE ENTRY FOE 0200: PATIENT IS RESTING WITH EYE'S CLOSED. NO S/S OF PAIN.
--- NOTE | 2021-04-04 04:11 | NUR ---
COMFORT: PATIENT IS MOANING, WITH RESTLESS LEGS. PERSONAL CARE, REPOSITIONING, MORPHINE AND EMOTIONAL CARE ARE GIVEN.
--- NOTE | 2021-04-04 07:19 | NUR ---
SHIFT SUMMARY: PATIENT IS A&O TO SELF, ABLE TO STAND AND PIVOT TO THE BSC WITH GAIT BELT AND ASSIST OF 1, TO VOID. VERY ANXIOUS AT START OF SHIFT. ATIVAN WAS GIVEN WITH GOOD EFFECT X1. ROXANOL WAS GIVEN X2 WITH GOOD EFFECT FRO FLACC SCALE SCORES OF 5-6, WITH GOOD EFFECT. VEST RESTRAINT IS DC'D, CRITERIA WAS MET. BED ALARM IS ON FOR SAFETY.
--- NOTE | 2021-04-04 11:41 | NUR ---
Comfort Care Visit Pt resting in bed with her eyes closed. This RN did not disturb Pt at this time. Pt appears comfortable with no S/S of distress at this time. Spoke with Primary RN Lala and discussed case. Pt medicated with Ativan and Roxanol for comfort with good effect. Palliative Care will remain available.
--- NOTE | 2021-04-04 16:34 | NUR ---
Spiritual care note: I met with family at bedside. Provided nearing education at their request and offered emotional grief counselor. Affirmed obvious love. Even though pt is not Quaker, they asked for "late rites." Provided prayer and annointing at bedisde. Pt breaths shallow, but even. Skin appears a bit dusky. Family is pleased with compassionate care by [facility] staff. Advised self-care and breaks. Esthetician Permanent Makeup Artist services will remain available.
--- NOTE | 2021-04-04 18:08 | NUR ---
PT IS COMFORT CARE AND HAS NEEDED MEDICATION PER EMAR EVERY COUPLE HOURS. PT IS A TWO PERSON TO BEDSIDE COMMODE SHE IS FEELING MORE WEAK THE DAY PROGRESSES. FAMILY IS AT BEDSIDE. PT IS TURNING ON HER OWN AT THIS TIME. WILL CONTINUE TO MONITOR.
--- NOTE | 2021-04-04 20:22 | NUR ---
COMFORT: PATIENT IS RESTLESS AND MOANING, SCORES A 5 ON FLACC SCALE. ATIVAN AND ROXANOL ARE GIVEN.
--- NOTE | 2021-04-04 23:13 | NUR ---
COMFORT: PATIENT HAD GOOD EFFECT FROM ATIVAN AND ROZANOL GIVEN FOR PAIN AND ANXIETY.
--- NOTE | 2021-04-05 01:17 | NUR ---
COMFORT: PATIENT CONTINUES TO HAVE GOOD EFFECT FROM ATIVAN AND ROXANOL. EMOTIONAL SUPPORT, PERSONAL CARE AND REPOSITIONING ARE GIVEN.
--- NOTE | 2021-04-05 02:26 | NUR ---
COMFORT: PATIENT SCORES A 5 ON FLACC SCALE, ROXANOL IS GIVEN.
--- NOTE | 2021-04-05 06:09 | NUR ---
SHIFT SUMMARY: PATIENT HAS NOT HAD ANY ORAL INTAKE AND NO URINE OUTPUT ALL SHIFT. BLADDER SCAN SHOWS 577ML IN BLADDER. SCORING A 2 ON THE FLACC SCALE. ROXANOL 10MG WAS GIVEN AND HANSON CATHETER WAS PLACED. PATIENT TOLERATED WELL. UA IS SENT TO LAB PER PROTOCOL.
[2021-04-05 06:23] LABS: Source, Urine Catheter
[2021-04-05 06:31] LABS: Appearance, Urine Clear (Clear); Bilirubin, Urine Neg (Neg); Blood, Urine 1+ (Neg); Color, Urine Yellow (P-Yellow); Glucose Qualitative, Urine Neg (Neg); Ketones, Urine 3+ (Neg); Leukocyte Esterase, Urine Neg (Neg); Nitrite, Urine Neg (Neg); Protein, Urine 1+ (Neg); Specific Gravity, Urine 1.015 (1.003-1.022); Urobilinogen, Urine NORM (Normal)
[2021-04-05 06:59] LABS: Bacteria Many /hpf; Squamous Epithelial Cells Rare /hpf (Few); White Blood Cells, Urine 0-2 /hpf (0-5)
--- NOTE | 2021-04-05 10:43 | NUR ---
Comfort Care Visit Pt resting in bed with her eyes closed. Pt's son Christopher at bedside. Pt appears comfortable with no S/S of distress at this time. Answered questions and offered therapeutic listening for son Christopher. Deferred some questions for caremanagement to discuss. Christopher expresses appreciation of visit and reports no other concerns at this time. Spoke with Dr Vallecillo who signs POLST. Returned original POLST to son and delivered copy of POLST to medical records. Spoke with Caremanyuli Machado and discussed case. Palliative Care will remain available.
[2021-04-05] MEDS ORDERED: MORP20L PO (12:39)
[2021-04-05] MEDS ORDERED: TRANSDERM-SCOP1 EAC5 TD (12:40)
[2021-04-05] MEDS ORDERED: ATROPINE SULFATE2 M5 SL (12:40)
[2021-04-05 14:44] LABS: SARS-Cov-2 (COVID-19) PCR, MMC NEGATIVE (NEGATIVE)
--- NOTE | 2021-04-05 17:51 | NUR ---
PT TRANSFERED OVER TO [facility] AT 1530. PT HAS BEEN ON COMFORT CARE AND TREATED PER EMAR FOR PAIN AND ANXIETY. PT SLEEP MOST OF TODAY ONLY TO WAKE WITH PAIN OR TURNING. FAMILY AT BEDSIDE AND TOOK PERSONAL BELONGINS WITH THEM. AMBULANCE ARRIVED AND TRANSPORTED PT VIA STRETCHER. PACKET GIVEN TO SOUND EFFECTS SUPERVISOR AND REPORT WAS CALLED PRIOR TO TRANSPORT.
== END 2021-04-05 15:26 | disposition hospice, home (50) ==
LOC: ER 22:01 → MEDS 22:03 → ER 04-03 00:53 → MEDS 04-03 00:53 → ENPENDDIS 04-05 12:37 → MEDS 04-05 15:26
PROVIDERS: Emergency Medicine; Hospitalist; Internal Medicine; ADMIT Internal Medicine
DX: D64.9 Anemia, unspecified (principal); E87.6 Hypokalemia; I12.9 Hypertensive chronic kidney disease with stage 1 through stage 4 chronic kidney disease, or unspecified chronic kidney disease; N18.30 Chronic kidney disease, stage 3 unspecified; Z20.822 Contact with and (suspected) exposure to COVID-19; M96.840 Postprocedural hematoma of a musculoskeletal structure following a musculoskeletal system procedure; I25.10 Atherosclerotic heart disease of native coronary artery without angina pectoris; F03.90 Unspecified dementia, unspecified severity, without behavioral disturbance, psychotic disturbance, mood disturbance, and anxiety; F17.210 Nicotine dependence, cigarettes, uncomplicated; G89.29 Other chronic pain; Z51.5 Encounter for palliative care; Z66 Do not resuscitate; Z96.642 Presence of left artificial hip joint
CPT/HCPCS: 36415; 36430; 51702; 73700; 80053; 81001; 82728; 83540; 83550; 85025; 85045; 85610; 85730; 86850; 86900; 86901; 86923; 87077; 87086; 87186; 93005; 93010; 96374; 96375; 96376; 99284-25; A9270; C9113; G0378; J1630; J2060; J3010; J7030; J7040; P9016; U0004

== ENCOUNTER → 2021-04-02 | Outpatient (CLI) | payer OTHER ==
[~2021-04-02] MED LIST changes: +AMLOATOR; +ASPIR 8181 MG PO; +ATROPINE SULFATE2 M5 SL; +AVAPRO150 MG PO; +MIRT15 PO; +MORP20L PO; +Nicoderm Cq1 EAC1 TOP; +ONDA4ODT MM; +TRANSDERM-SCOP1 EAC5 TD
[2021-04-02 17:39] LABS: Hematocrit 21.9 % (33.0-51.0); Hemoglobin 6.3 g/dL (11.5-16.0); Mean Corpuscular HGB Conc 28.8 g/dL (31.5-36.5); Mean Corpuscular Volume 111 fL (80-100); Mean Platelet Volume 10.7 fL (9.1-12.4); Platelet Count 297 K/mm3 (150-400); RDW Coefficient Variation 19.5 % (11.7-14.2); RDW Standard Deviation 76.1 fL (35.1-46.3); Red Blood Cell Count 1.97 M/mm3 (3.80-5.20); White Blood Cell Count 10.15 K/mm3 (4.00-11.30)
[2021-04-02 19:12] LABS: Anion Gap 9 mmol/L (6-16); Blood Urea Nitrogen 17 mg/dL (8-24); Bun/Creatinine Ratio 21.8 (12.0-20.0); CO2, Blood 23 mmol/L (21-32); Calcium, Blood 8.6 mg/dL (8.5-10.1); Chloride, Blood 106 mmol/L (98-108); Creatinine, Blood 0.78 mg/dL (0.40-1.00); Glomerular Filtration Rate >60 (60-); Glucose, Blood 86 mg/dL (70-99); Potassium, Blood 3.8 mmol/L (3.5-5.5); Sodium, Blood 138 mmol/L (136-145)
[2021-04-02 21:14] LABS: BASOPHILS PERCENT AUTO 0 % (0-2); EOSINOPHILS ABSOLUTE AUTO 0.02 K/mm3 (0.00-0.68); EOSINOPHILS PERCENT AUTO 0 % (0-6); Hematocrit 20.5 % (33.0-51.0); Hemoglobin 6.3 g/dL (11.5-16.0); IMMATURE GRAN ABSOLUTE AUTO 0.29 K/mm3 (0.00-0.10); IMMATURE GRAN PERCENT AUTO 3 % (0-1); LYMPHOCYTES ABSOLUTE AUTO 1.32 K/mm3 (0.84-5.20); LYMPHOCYTES PERCENT AUTO 13 % (21-46); MONOCYTES ABSOLUTE AUTO 1.64 K/mm3 (0.16-1.47); MONOCYTES PERCENT AUTO 16 % (4-13); Mean Corpuscular HGB 32.3 pg (26.0-34.0); Mean Corpuscular HGB Conc 30.7 g/dL (31.5-36.5); Mean Platelet Volume 10.5 fL (9.1-12.4); NEUTROPHILS ABSOLUTE AUTO 7.12 K/mm3 (1.96-9.15); NEUTROPHILS PERCENT AUTO 69 % (41-73); Platelet Count 286 K/mm3 (150-400); RDW Coefficient Variation 19.3 % (11.7-14.2); RDW Standard Deviation 70.6 fL (35.1-46.3); Red Blood Cell Count 1.95 M/mm3 (3.80-5.20); White Blood Cell Count 10.39 K/mm3 (4.00-11.30)
[2021-04-02 21:15] LABS: Mean Corpuscular Volume 105 fL (80-100)
== END ==
LOC: EDSTATUS 09:55 → LAB RH 16:39
PROVIDERS: Internal Medicine
DX: R68.89 Other general symptoms and signs (principal); R79.89 Other specified abnormal findings of blood chemistry
CPT/HCPCS: 80048; 85025; 85027